=== PATIENT | female | born 1985 | race Caucasian/White ===

== ENCOUNTER 2022-11-13 10:09 | Emergency (ER) | payer MEDICAID ==
[~2022-11-13] VITALS: Ht 165.1 cm; Wt 66.0 kg
[2022-11-13 10:38] VITALS: BP 105/72
[2022-11-13 12:24] LABS: BASOPHILS % 0.7 % (0.0-2.0); EOSINOPHILS % 1.3 % (0.0-5.0); HEMATOCRIT. 35.9 % (36.0-48.0); HEMOGLOBIN. 11.7 g/dL (12.0-16.0); LYMPHOCYTES % 35.8 % (20.0-50.0); MEAN CORPUSCULAR HEMOGLOBIN 28.7 pg (28.0-32.0); MEAN CORPUSCULAR VOLUME 88.1 fL (81.0-99.0); MONOCYTES % 7.1 % (2.0-8.0); NEUTROPHILS % 55.1 % (40.0-76.0); PLATELET 193 x1000/uL (130-400); RED BLOOD CELL COUNT 4.07 mill/uL (4.2-5.4)
[2022-11-13 12:32] LABS: CHLORIDE 105 mEq/L (98-107)
[2022-11-13 12:53] LABS: HCG SCREEN NEGATIVE
== END 2022-11-13 15:26 | disposition left against medical advice (07) ==
LOC: ER 10:58
DX: R10.9 Unspecified abdominal pain (principal); D64.9 Anemia, unspecified
CPT/HCPCS: 36415; 80053; 83655; 84703; 85025; 93005; 99284

== ENCOUNTER 2025-05-11 12:22 | Emergency (ER) | payer MEDICAID ==
[~2025-05-11] VITALS: Ht 165.1 cm; Wt 64.0 kg
[2025-05-11 12:31] VITALS: O2SAT 98
[2025-05-11] MEDS ORDERED: ACETAMINOPHEN 325MG TABLET PO ONE (13:30)
[2025-05-11] MEDS ORDERED: KETOROLAC 30MG/ML VIAL IM ONE (13:30)
[2025-05-11] MEDS ORDERED: LIDOCAINE 5% PATCH TOP ONE (13:30)
[2025-05-11] MEDS ORDERED: CYCLOBENZAPRINE 10MG TABLET PO ONE (13:30)
[2025-05-11] MEDS: KETOROLAC 30MG/ML VIAL IM SCH (16:00)
[2025-05-11] MEDS: CYCLOBENZAPRINE 10MG TABLET PO SCH (16:00)
[2025-05-11] MEDS: LIDOCAINE 5% PATCH TOP SCH (16:01)
[2025-05-11] MEDS: ACETAMINOPHEN 325MG TABLET PO SCH (16:01)
[2025-05-11] MEDS ORDERED: LIDO700A30 TP (17:45)
[2025-05-11] MEDS ORDERED: CYCL10TA21 MT (17:45)
[2025-05-11] MEDS ORDERED: IBUP-2030 MT (17:45)
[2025-05-11 18:03] VITALS: BP 129/89; PULSE 73; RESP 16; TEMP 36.8; O2SAT 98
== END 2025-05-11 18:04 | disposition home or self-care (01) ==
LOC: ER 12:22
DX: S60.511A Abrasion of right hand, initial encounter (principal); M25.551 Pain in right hip; R07.81 Pleurodynia; W10.9XXA Fall (on) (from) unspecified stairs and steps, initial encounter; M25.512 Pain in left shoulder; M25.511 Pain in right shoulder; R51.9 Headache, unspecified; Y93.01 Activity, walking, marching and hiking; Y92.89 Other specified places as the place of occurrence of the external cause; Y99.8 Other external cause status
CPT/HCPCS: 81025; 73502; 71101; 73110; 73130; 70450; 96372; 99285; J1885; Z7610

== ENCOUNTER 2025-06-30 09:23 | Emergency (ER) | payer MEDICAID ==
[~2025-06-30] VITALS: Ht 165.1 cm; Wt 64.0 kg
[~2025-06-30 09:23] MED LIST: CYCL10TA21 MT; IBUP-2030 MT; LIDO700A30 TP
[2025-06-30 09:37] VITALS: TEMP 36.8; O2SAT 99
[2025-06-30] MEDS: KETOROLAC 15MG/ML VIAL IM ONE (09:59)
[2025-06-30] MEDS: ACETAMINOPHEN 325MG TABLET PO ONE (09:59)
[2025-06-30] MEDS ORDERED: LIDO700A30 TP (10:00)
[2025-06-30] MEDS: LIDOCAINE 5% PATCH TOP SCH (10:00)
[2025-06-30 11:48] VITALS: BP 101/65; PULSE 55; RESP 18; O2SAT 100
== END 2025-06-30 11:55 | disposition home or self-care (01) ==
LOC: ER 09:23
DX: M25.561 Pain in right knee (principal); M54.50 Low back pain, unspecified
CPT/HCPCS: 81025; 72100; 73562; 96372; 99284; J1885; Z7610

== ENCOUNTER 2025-09-14 17:52 | Emergency (ER) | payer SELFPAY ==
[2025-09-14 17:54] VITALS: PULSE 79; RESP 16; O2SAT 98
== END 2025-09-14 18:36 | disposition left against medical advice (07) ==
LOC: ER 17:52
DX: M79.604 Pain in right leg (principal)
CPT/HCPCS: 99281

== ENCOUNTER 2025-09-16 21:56 | Emergency (ER) | payer SELFPAY ==
[~2025-09-16] VITALS: Ht 167.6 cm; Wt 65.0 kg
[2025-09-16 22:20] VITALS: O2SAT 98
[2025-09-16] MEDS: CYCLOBENZAPRINE 10MG TABLET PO ONE (22:45)
[2025-09-16] MEDS: KETOROLAC 30MG/ML VIAL IM ONE (22:45)
[2025-09-16] MEDS ORDERED: NAPR-1176 MT (23:57)
[2025-09-17 00:07] VITALS: BP 109/75; PULSE 61; RESP 18; TEMP 36.7; O2SAT 98
== END 2025-09-17 00:13 | disposition home or self-care (01) ==
LOC: ER 21:56
DX: S39.011A Strain of muscle, fascia and tendon of abdomen, initial encounter (principal); M25.551 Pain in right hip; Z79.1 Long term (current) use of non-steroidal anti-inflammatories (NSAID); X50.1XXA Overexertion from prolonged static or awkward postures, initial encounter; Y93.89 Activity, other specified; Y92.89 Other specified places as the place of occurrence of the external cause; Y99.0 Civilian activity done for income or pay
CPT/HCPCS: 99283; 81025; 73502; 96372; J1885